=== PATIENT | male | born 1960 | race Caucasian/White ===

== ENCOUNTER 2016-08-24 16:31 | Emergency (ER) | payer OTHER ==
[2016-08-24 16:51] LABS: BASOPHIL 0.6 % (0-2); EOSINOPHIL 1.7 % (0-5); HCT 34.3 % (42.0-52.0); HGB 12.3 g/dl (13.2-18.0); LYMPHOCYTE 29.4 % (15-48); MCHC 35.9 g/dL (32.0-36.0); MCV 97.7 fL (78.0-100.0); MONOCYTE 12.5 % (0-12); MPV 10.9 fL (6.0-9.5); NEUTROPHIL 55.8 % (41-80); PLT 122 K/uL (150-400); RBC 3.51 M/uL (4.70-6.00); RDW 14.2 % (11.5-14.0); WBC 6.3 K/uL (4.0-10.5)
[2016-08-24 17:09] LABS: ALBUMIN 3.2 g/dL (3.5-5.0); BILIRUBIN - TOTAL 2.1 mg/dL (0.1-1.0); CREATININE 0.8 mg/dL (0.7-1.2); POTASSIUM 3.8 mmol/L (3.5-5.1); TOTAL PROTEIN 6.2 g/dL (6.4-8.3)
[2016-08-24 17:55] LABS: BILIRUBIN NEGATIVE (NEGATIVE); BLOOD NEGATIVE Ery/uL (NEGATIVE); CLARITY CLEAR (CLEAR); COLOR YELLOW (YELLOW); GLUCOSE (U) NORMAL (NORMAL); KETONE (U) NEGATIVE (NEGATIVE); LEUKOCYTES NEGATIVE Leu/uL (NEGATIVE); NITRITE NEGATIVE (NEGATIVE); PROTEIN NEGATIVE (NEGATIVE); SPECIFIC GRAVITY <=1.005 (1.001-1.030)
[2016-08-24 18:05] LABS: AMPHETAMINES NEGATIVE (NEGATIVE); BARBITURATES NEGATIVE (NEGATIVE); BENZODIAZEPINES NEGATIVE (NEGATIVE); COCAINE NEGATIVE (NEGATIVE); MARIJUANA (THC) NEGATIVE (NEGATIVE); METHADONE NEGATIVE (NEGATIVE); TRICYCLIC ANTIDEPRESSANT NEGATIVE (NEGATIVE)
== END 2016-08-24 20:36 | disposition other institution (70) ==
LOC: FER 16:31
PROVIDERS: Emergency Medicine
DX: I45.81 Long QT syndrome (principal); I10 Essential (primary) hypertension; F17.200 Nicotine dependence, unspecified, uncomplicated
CPT/HCPCS: 36415; 70450; 71010; 72125; 80053; 80305; 81003; 83735; 85025; 93005; G0480; J3411; J3475